=== PATIENT | female | born 1960 | race Caucasian/White ===

== ENCOUNTER 2024-09-08 08:51 | Emergency (ER) | payer MEDICARE, OTHER ==
[2024-09-08 09:10] LABS: APPEARANCE,URINE CLEAR (CLEAR); BILIRUBIN,URINE NEGATIVE (NEGATIVE); COLOR,URINE YELLOW (YELLOW); GLUCOSE,URINE NEGATIVE (NEGATIVE); KETONES,URINE NEGATIVE (NEGATIVE); LEUKOCYTE ESTERASE,URINE SMALL (NEGATIVE); NITRITE,URINE NEGATIVE (NEGATIVE); OCCULT BLOOD,URINE MODERATE (NEGATIVE); PH,URINE 6.5 (5.0-8.0); PROTEIN,URINE NEGATIVE (NEGATIVE); UROBILINOGEN,URINE 0.2 EU/dL (0.2-1.0)
[2024-09-08 09:29] LABS: BACTERIA,URINE RARE; EPITHELIAL CELLS,URINE RARE
== END 2024-09-08 10:00 | disposition home or self-care (01) ==
LOC: JP.ED 08:51
DX: N39.0 Urinary tract infection, site not specified (principal)
CPT/HCPCS: 81001; 99283